=== PATIENT | male | born 1990 | race Caucasian/White ===

== ENCOUNTER 2021-08-12 13:04 | Emergency (ER) | payer BC ==
[~2021-08-12] VITALS: Ht 172.7 cm; Wt 64.9 kg
[2021-08-12 13:05] VITALS: BP_SYST 112
--- NOTE | 2021-08-12 13:05 | NUR ---
Pt to Hallway bed for evaluation.
--- NOTE | 2021-08-12 13:10 | NUR ---
Pt brought by JOSE LUIS, Daniel&Ox4, pt presents to ER with anxiety, VSS, skin pink and warm, respirations even and unlabored, will cont to monitor.
--- NOTE | 2021-08-12 13:37 | NUR ---
Dr Franoc evaluating patient at bedside
[2021-08-12] MEDS ORDERED: HYDR-3908 PO (14:35)
[2021-08-12 15:00] VITALS: BP_SYST 112
--- NOTE | 2021-08-12 15:00 | NUR ---
Patient given written and verbal discharge instructions and verbalizes understanding. Dr. Salvador LANTIGUA MD discussed with patient the results and treatment provided. Patient in stable condition. ID arm band removed. Patient educated on pain management and to follow up with PMD. Pain Scale 0/10. Opportunity for questions provided and answered.
== END 2021-08-12 15:00 | disposition home or self-care (01) ==
LOC: SED 13:04
DX: F41.9 Anxiety disorder, unspecified (principal); Z79.899 Other long term (current) drug therapy
CPT/HCPCS: 93005; 99283